=== PATIENT | male | born 1965 | race Caucasian/White ===

== ENCOUNTER 2017-11-16 07:04 | Inpatient (IN) | payer BC ==
[~2017-11-16 07:04] MED LIST: Acetaminophen 325 MG Tab PO SCH; Bisacodyl 5 MG Tab PO PRN; Cyclobenzaprine 10 MG Tab PO PRN; Lactated Ringers 1,000 ML IV SCH; Lidocaine 1%/Sod Bicarbonate in NS 8.4% 1 ML Syringe IDERM PRN; Magnesium Hydroxide 400 MG/5 ML Susp 30 ML Cup PO PRN; Midazolam 1 MG/ML 2 ML SDV ONE; Morphine 2 MG/ML Syringe IVPUSH PRN; Morphine PF 10 MG/10 ML SDV ONE; Naloxone 0.4 MG/ML SDV IVPUSH PRN; Pregabalin 25 MG Cap PO SCH; Propofol 200 MG/20 ML SDV ONE; Sennosides 8.6 MG Tab PO PRN; Sodium Chloride 0.9% 10 ML Syringe FLUSH PRN; fentaNYL 100 MCG/2 ML SDV ONE; oxyCODONE ER 10 MG TAB.ER PO SCH
[2017-11-16] MEDS ORDERED: ceFAZolin 1 GM Vial ONE (07:13)
--- NOTE | 2017-11-16 07:27 | PCM.CONS ---
H&P History of Present Illness - General Date of Service: 11/16/17 Admit Problem/Dx: Admission Diagnosis/Problem Admission Diagnosis/Problem Osteoarthritis of hip Source of Information: Patient, Old Records, Provider, RN, RN Notes Reviewed, Other (Surgical notes ) - History of Present Illness Initial Comments - Free Text/Narative: Omar Parks is a 52 yo male patient of Dr. Buitrago who is post-operative day 0 of right JONAH. Hospital medicine was consulted for post-operative medical care. At this time He is resting comfortably in bed. Pain is controlled. He denies any chest pain, shortness of breath, palpitations, nausea, or vomiting. He carries a history of: Osteoarthritis, HTN, femoral acetabular impingement, and LEO. He was never a smoker. He is a full code. His primary care provider is Ashley More NP. - Related Data Allergies/Adverse Reactions: Allergies Allergy/AdvReac Type Severity Reaction Status Date / Time No Known Allergies Allergy Verified 11/16/17 11:00 Home Medications: Home Meds Aspirin [Ecotrin] 81 mg PO DAILY 11/13/17 [History] Cholecalciferol (Vitamin D3) [Vitamin D3] 5,000 unit PO DAILY 11/13/17 [History] Psyllium [Metamucil] 1 cap PO ASDIRECTED PRN 11/13/17 [History] Fish Oil/[place]-3 Fatty Acids [Fish Oil 1,000 MG] 4 cap PO DAILY 11/16/17 [ History] Past Medical History HEENT History: Reports: Impaired Vision, Other (See Below) Other HEENT History: oral surgery, wears glasses Cardiovascular History: Reports: None Respiratory History: Reports: Sleep Apnea Gastrointestinal History: Reports: None Genitourinary History: Reports: None BUFFET ATTENDANT History: Reports: None Musculoskeletal History: Reports: Arthritis, Other (See Below) Other Musculoskeletal History: femoral acetabular impingment Neurological History: Reports: None Psychiatric History: Reports: None Endocrine/Metabolic History: Reports: None Hematologic History: Reports: None Immunologic History: Reports: None Oncologic (Cancer) History: Reports: None Dermatologic History: Reports: None - Past Surgical History Head Surgeries/Procedures: Reports: None Cardiovascular Surgical History: Reports: None Respiratory Surgical History: Reports: None GI Surgical History: Reports: Colonoscopy Female Surgical History: Reports: None Male Surgical History: Reports: None Endocrine Surgical History: Reports: None Neurological Surgical History: Reports: None Musculoskeletal Surgical History: Reports: Other (See Below) Other Musculoskeletal Surgeries/Procedures:: left hip surgery Oncologic Surgical History: Reports: None Dermatological Surgical History: Reports: None Social & Family History - Tobacco Use Smoking Status *Q: Never Smoker - Caffeine Use Caffeine Use: Reports: Coffee, Soda, Tea - Recreational Drug Use Recreational Drug Use: No Drug Use in Last 12 Months: No H&P Review of Systems - Review of Systems: Review Of Systems: See Below General: Reports: No Symptoms HEENT: Reports: Sore Throat Pulmonary: Reports: No Symptoms. Denies: Shortness of Breath, Wheezing, Cough, Sputum Cardiovascular: Reports: No Symptoms. Denies: Chest Pain, Palpitations Gastrointestinal: Reports: No Symptoms. Denies: Abdominal Pain, Constipation, Diarrhea, Nausea, Vomiting Genitourinary: Reports: No Symptoms Musculoskeletal: Reports: No Symptoms. Denies: Leg Pain Skin: Reports: No Symptoms Psychiatric: Reports: No Symptoms Neurological: Reports: Numbness (legs ) Hematologic/Lymphatic: Reports: No Symptoms Immunologic: Reports: No Symptoms Exam - Exam Exam: See Below - Exam Quality Assessment: Supplemental Oxygen (1L), Urinary Catheter, DVT Prophylaxis General: Alert, Oriented, Cooperative. No: Mild Distress HEENT: Conjunctiva Clear, EACs Clear, EOMI, Hearing Intact, Mucosa Moist & [place] , Nares Patent, Normal Nasal Septum, Posterior Pharynx Clear, PERRLA Neck: Supple, Trachea Midline Lungs: Clear to Auscultation, Normal Respiratory Effort Cardiovascular: Regular Rate, Regular Rhythm GI/Abdominal Exam: Normal Bowel Sounds, Soft, Non-Tender, No Distention, No Abnormal Bruit (Male) Exam: Deferred Rectal (Males) Exam: Deferred Back Exam: Normal Inspection, Full Range of Motion Extremities: No Pedal Edema, Normal Capillary Refill, Leg Pain, Limited Range of Motion, Other (NICOLE bandage in place on right leg. Bandage is dry and intact. Cooling pack in place. ) Peripheral Pulses: 2+: Radial (L), Radial (R), Dorsalis Pedis (L), Dorsalis Pedis (R) Skin: Warm, Dry, Intact Neurological: Cranial Nerves Intact (grossly ) Neuro Extensive - Mental Status: Alert, Oriented x3, Normal Mood/Affect, Normal Cognition, Memory Intact Psychiatric: Alert, Normal Affect, Normal Mood - Patient Data Result Diagrams: 11/16/17 10:42 Consult PN Assessment/Plan POD#: 0 Procedures: Procedures ASSAY OF FOLIC ACID SERUM (05/19/17) ASSAY OF IRON (05/19/17) ASSAY OF PREALBUMIN (10/19/17) ASSAY OF TRANSFERRIN (05/19/17) ASSAY THYROID STIM HORMONE (05/19/17) COMPLETE CBC AUTOMATED (05/19/17) COMPLETE CBC W/AUTO DIFF WBC (10/19/17) COMPREHEN METABOLIC PANEL (10/19/17) DRAIN/INJ JOINT/BURSA W/O US (08/07/17) GLYCOSYLATED HEMOGLOBIN TEST (05/19/17) INJECTION FOR HIP X-RAY (06/25/17) LIPID PANEL (05/19/17) MRI JOINT OF LWR EXTR W/DYE (06/25/17) NEEDLE LOCALIZATION BY XRAY (06/25/17) PROTHROMBIN TIME (10/19/17) ROUTINE VENIPUNCTURE (05/19/17) VITAMIN B-12 (05/19/17) VITAMIN D 25 HYDROXY (05/19/17) X-RAY EXAM CHEST 2 VIEWS (10/19/17) (1) S/P total hip arthroplasty SNOMED Code(s): 891527742367, 335982186478 Code(s): Z96.649 - PRESENCE OF UNSPECIFIED ARTIFICIAL HIP JOINT Priority: High Current Visit: Yes Qualifiers: Laterality: right Qualified Code(s): Z96.641 - Presence of right artificial hip joint (2) Osteoarthritis SNOMED Code(s): 878045629 Code(s): M19.90 - UNSPECIFIED OSTEOARTHRITIS, UNSPECIFIED SITE Priority: High Current Visit: Yes Qualifiers: Osteoarthritis location: hip Osteoarthritis type: primary Laterality: right Qualified Code(s): M16.11 - Unilateral primary osteoarthritis, right hip (3) HTN (hypertension) SNOMED Code(s): 24656693 Code(s): I10 - ESSENTIAL (PRIMARY) HYPERTENSION Priority: Medium Current Visit: No Qualifiers: Hypertension type: unspecified Qualified Code(s): I10 - Essential (primary ) hypertension (4) LEO (obstructive sleep apnea) SNOMED Code(s): 79576385 Code(s): G47.33 - OBSTRUCTIVE SLEEP APNEA (ADULT) (PEDIATRIC) Priority: Low Current Visit: No Problem List Initiated/Reviewed/Updated: Yes Plan: I/P: Acute: S/P right total hip arthroplasty - post-operative day 0 -DVT prophylaxis and pain management per primary care team -PT/OT -IS/RT -Monitor oxygen saturation -Titrate oxygen as needed -Vital signs stable -Monitor labs -Pre-operative Hgb was 13.1 -Pre-operative GFR was >60 Osteoarthritis of right hip -Pain management per primary care team Situational HTN -BP 186/105 pre-operatively; 149/91 post-operatively -Likely worsened by anxiety/pain -Reports PCP is watching BP and he takes it around 3 times a week -Reports pressures normally in 130 systolic -PRN Hydralazine -Recommend closer following of BPs on discharge with close PCP follow-up Chronic: OA HTN LEO - Has home CPAP with Femoral acetabular impingement Plan: CM for discharge planning GI prophylaxis Home medications as indicated Other orders as listed above Routine AM labs He is a full code. His PCP is Ashley More NP. Thank you for allowing us to participate in the care of this patient!! Requesting Provider: Dr. Buitrago Date Consult Requested: 11/16/17 Reason for Consult: Post-operative medical care Patient History Reviewed: Yes Admission H&P Reviewed: Yes Time Spent (in minutes): 40
--- NOTE | 2017-11-16 07:31 | PCM.PREANE ---
Preanesthetic Assessment - Anesthesia/Transfusion/Family Hx Anesthesia History: Prior Anesthesia Without Reaction Type of Anesthesia Reaction: Excessive Nausea/Vomiting (with hip scope 3 years ago) Family History of Anesthesia Reaction: No Transfusion History: No Prior Transfusion(s) - Review of Systems General: No Symptoms Pulmonary: Other (sleep apnea wears CPAP) Cardiovascular: Other (borderline high blood pressure, monitored by primary) Gastrointestinal: No Symptoms Neurological: Other (states he has neuropathy in both feet) - Physical Assessment NPO Status Date: 11/16/17 NPO Status Time: 04:30 (water) Pulse: 62 O2 Sat by Pulse Oximetry: 99 Respiratory Rate: 16 Blood Pressure: 186/105 Height: 1.8 m Weight: 103.102 kg ASA Class: 2 (3) Mental Status: Alert & Oriented x3 Dentition: Reports: Normal Dentition Thyro-Mental Finger Breadths: 3 Mouth Opening Finger Breadths: 3 ROM/Head Extension: Full Lungs: Clear to Auscultation, Normal Respiratory Effort Cardiovascular: Regular Rate, Regular Rhythm - Lab Values: Laboratory Last Values MRSA (PCR) Negative 10/27/17 14:05 - Allergies Allergies/Adverse Reactions: Allergies Allergy/AdvReac Type Severity Reaction Status Date / Time No Known Allergies Allergy Verified 11/13/17 12:52 - Blood Blood Available: No Product(s) Available: None - Anesthesia Plan Pre-Op Medication Ordered: None - Acknowledgements Anesthesia Type Planned: Spinal Pt an Appropriate Candidate for the Planned Anesthesia: Yes Alternatives and Risks of Anesthesia Discussed w Pt/Guardian: Yes Pt/Guardian Understands and Agrees with Anesthesia Plan: Yes PreAnesthesia Questionnaire HEENT History: Reports: Impaired Vision, Other (See Below) Other HEENT History: oral surgery, wears glasses Cardiovascular History: Reports: None Respiratory History: Reports: Sleep Apnea Gastrointestinal History: Reports: None Genitourinary History: Reports: None WASTE MANAGEMENT ENGINEER History: Reports: None Musculoskeletal History: Reports: Arthritis, Other (See Below) Other Musculoskeletal History: femoral acetabular impingment Neurological History: Reports: None Psychiatric History: Reports: None Endocrine/Metabolic History: Reports: None Hematologic History: Reports: None Immunologic History: Reports: None Oncologic (Cancer) History: Reports: None Dermatologic History: Reports: None - Past Surgical History Head Surgeries/Procedures: Reports: None Cardiovascular Surgical History: Reports: None Respiratory Surgical History: Reports: None GI Surgical History: Reports: Colonoscopy Female Surgical History: Reports: None Male Surgical History: Reports: None Endocrine Surgical History: Reports: None Neurological Surgical History: Reports: None Musculoskeletal Surgical History: Reports: Other (See Below) Other Musculoskeletal Surgeries/Procedures:: left hip surgery Oncologic Surgical History: Reports: None Dermatological Surgical History: Reports: None - SUBSTANCE USE Smoking Status *Q: Never Smoker Recreational Drug Use History: No - HOME MEDS Home Medications: Home Meds Aspirin [Ecotrin] 81 mg PO DAILY 11/13/17 [History] Cholecalciferol (Vitamin D3) [Vitamin D3] 5,000 unit PO DAILY 11/13/17 [History] Psyllium [Metamucil] 1 cap PO ASDIRECTED PRN 11/13/17 [History] - CURRENT (IN HOUSE) MEDS Current Meds: Current Medications Acetaminophen (Tylenol) 975 mg PO ONETIME KARISSA Stop: 11/16/17 12:00 Aspirin (Ecotrin) 325 mg PO BID KARISSA Bisacodyl (Dulcolax) 5 mg PO DAILY PRN PRN Reason: Constipation Morphine Sulfate 8 mg/Epinephrine HCl 0.3 mg/Cefuroxime Sodium 750 mg/Ketorolac Tromethamine 30 mg/Sodium Chloride 27.9 ml 0 mg .XX ONETIME ONE Stop: 11/16/17 09:01 Cyclobenzaprine HCl (Flexeril) 10 mg PO TID PRN PRN Reason: Spasms Docusate Sodium (Colace) 100 mg PO BID KARISSA Famotidine (Pepcid) 20 mg PO Q12H [facility] Lactated Ringer's (Ringers, Lactated) 1,000 mls @ 125 mls/hr IV ASDIRECTED KARISSA Cefazolin Sodium/Dextrose 2 gm (/ Premix) 50 mls @ 100 mls/hr IV Q8H KARISSA Stop: 11/16/17 22:59 Ketorolac Tromethamine (Toradol) 15 mg IVPUSH Q6H PRN PRN Reason: Pain Lidocaine/Sodium Bicarbonate (Buffered Lidocaine 1% In Ns 8.4%) 0.25 ml IDERM ONETIME PRN PRN Reason: Prior to IV Start Magnesium Hydroxide (Milk Of Magnesia) 30 ml PO BID PRN PRN Reason: Constipation Morphine Sulfate (Morphine) 2 mg IVPUSH Q2H PRN PRN Reason: Breakthrough Pain Naloxone HCl (Narcan) 0.1 mg IVPUSH Q5M PRN PRN Reason: Oversedation Ondansetron HCl (Zofran) 4 mg IVPUSH Q6H PRN PRN Reason: Nausea/Vomiting Oxycodone HCl (Oxycontin) 10 mg PO ONETIME [facility] Stop: 11/16/17 12:00 Oxycodone/Acetaminophen (Percocet 325-5 Mg) 1 - 2 tab PO Q4H PRN PRN Reason: Pain Pregabalin (Lyrica) 50 mg PO ONETIME [facility] Stop: 11/16/17 12:00 Senna (Senna) 8.6 mg PO BID PRN PRN Reason: Constipation Sodium Chloride (Saline Flush) 10 ml FLUSH ASDIRECTED PRN PRN Reason: Keep Vein Open Discontinued Medications Bupivacaine HCl (Marcaine 0.25%) Confirm Administered Dose 30 ml .ROUTE .STK- MED ONE Stop: 11/16/17 07:14 Cefazolin Sodium (Ancef) Confirm Administered Dose 2 gm .ROUTE .STK-MED ONE Stop: 11/16/17 06:59 Cefazolin Sodium (Ancef) Confirm Administered Dose 2 gm .ROUTE .STK-MED ONE Stop: 11/16/17 07:14 Fentanyl (Sublimaze) Confirm Administered Dose 100 mcg .ROUTE .STK-MED ONE Stop: 11/16/17 07:00 Iodine (Iodine 2% Mild Tincture) Confirm Administered Dose 30 ml .ROUTE .STK- MED ONE Stop: 11/16/17 07:14 Midazolam HCl (Versed 1 Mg/Ml) Confirm Administered Dose 2 mg .ROUTE .STK-MED ONE Stop: 11/16/17 07:00 Morphine Sulfate (Duramorph Pf) Confirm Administered Dose 10 mg .ROUTE .STK-MED ONE Stop: 11/16/17 07:00 Propofol (Diprivan 20 Ml) Confirm Administered Dose 600 mg .ROUTE .STK-MED ONE Stop: 11/16/17 07:00 Tranexamic Acid (Cyklokapron) Confirm Administered Dose 1,000 mg .ROUTE .STK- MED ONE Stop: 11/16/17 07:14 Vancomycin HCl (Vancomycin) Confirm Administered Dose 1 gm .ROUTE .STK-MED ONE Stop: 11/16/17 07:14
[2017-11-16] MEDS ORDERED: Bupivacaine 0.75% 30 ML SDV ONE (08:39)
[2017-11-16] MEDS ORDERED: Ondansetron 4 MG/2 ML SDV ONE (08:39)
[2017-11-16] MEDS: ceFAZolin 1 GM Vial ONE ×2 (08:51→09:23)
[2017-11-16] MEDS: Iodine/Sodium Iodide 2% Tincture 30 ML Bottle ONE ×2 (08:52→09:21)
[2017-11-16] MEDS: Morphine 8 MG, EPINEPHrine 0.3 MG, Cefuroxime 750 MG, Ketorolac 30 MG, Sodium Chloride ... ONE ×15 (08:53→15:05)
[2017-11-16] MEDS: Bupivacaine 0.25% 30 ML SDV ONE ×2 (08:53→09:29)
[2017-11-16] MEDS: Vancomycin 1 GM SDV ONE ×2 (08:54→09:30)
[2017-11-16] MEDS ORDERED: Propofol 200 MG/20 ML SDV ONE (08:59)
[2017-11-16] MEDS ORDERED: Lactated Ringers 1,000 ML ONE ×3 (09:47)
--- NOTE | 2017-11-16 10:01 | PCM.POSTAN ---
POST ANESTHESIA ASSESSMENT - MENTAL STATUS Mental Status: Alert, Oriented - VITAL SIGNS Pulse Rate: 63 SaO2: 98 Resp Rate: 13 Blood Pressure: 126/82 Temperature: 36.2 C - RESPIRATORY Respiratory Status: Respiratory Rate WNL, Airway Patent, O2 Saturation Stable, Supplemental Oxygen - CARDIOVASCULAR CV Status: Pulse Rate WNL, Blood Pressure Stable - GASTROINTESTINAL GI Status: No Symptoms - PAIN Pain Score: 0
[2017-11-16] MEDS ORDERED: fentaNYL 100 MCG/2 ML SDV IVPUSH PRN (10:02)
[2017-11-16] MEDS ORDERED: diphenhydrAMINE 50 MG/ML SDV IVPUSH PRN (10:02)
[2017-11-16] MEDS ORDERED: HYDROmorphone 0.5 MG/0.5 ML Syringe IVPUSH PRN (10:02)
--- NOTE | 2017-11-16 10:44 | CR ---
Pelvis and right hip: AP view of the pelvis was obtained as well as lateral view of the right hip. Comparison: Prior MRI study of the right hip dated 06/25/17. Right hip prosthesis is seen. Components are aligned. Underlying bony structures are intact. Impression: 1. Satisfactory radiographic appearance of recently placed right hip prosthesis. Diagnostic code #2
[2017-11-16] MEDS ORDERED: Psyllium Husk Powder Sugar Free 3.4 GM Packet PO PRN (11:46)
[2017-11-16] MEDS: Ondansetron 4 MG/2 ML SDV IVPUSH PRN ×2 (13:51→20:30)
[2017-11-16] MEDS ORDERED: Scopolamine 1.5 MG Transdermal Patch TRDERM ONE (14:13)
[2017-11-16] MEDS: ceFAZolin 2 GM in Premix Bag 1 BAG IV SCH ×2 (15:32→23:00)
[2017-11-16] MEDS: Ketorolac 15 MG/ML SDV IVPUSH PRN (17:42)
[2017-11-16] MEDS: Acetaminophen/oxyCODONE 325-5 MG Tab PO PRN (20:27)
[2017-11-16] MEDS: Docusate Sodium 100 MG Cap PO SCH (20:29)
[2017-11-16] MEDS: Famotidine 20 MG Tab PO SCH (20:29)
[2017-11-17] MEDS: Acetaminophen/oxyCODONE 325-5 MG Tab PO PRN ×2 (03:07→08:32)
--- NOTE | 2017-11-17 06:35 | PCM.CONSN ---
- General Info Date of Service: 11/17/17 Admission Dx/Problem (Free Text): Admission Diagnosis/Problem Admission Diagnosis/Problem Osteoarthritis of hip Subjective Update: In to see Omar. He is quite tired but has no complaints. He is sitting up in the chair. No nursing complaints. Functional Status: Reports: Pain Controlled, Tolerating Diet, Ambulating, Urinating, Incentive Spirometry. Denies: New Symptoms - Review of Systems General: Reports: No Symptoms. Denies: Fever, Malaise HEENT: Reports: No Symptoms. Denies: Sore Throat Pulmonary: Reports: No Symptoms. Denies: Shortness of Breath, Cough, Wheezing Cardiovascular: Reports: No Symptoms. Denies: Chest Pain, Palpitations, Lightheadedness Gastrointestinal: Reports: No Symptoms. Denies: Abdominal Pain, Constipation, Diarrhea, Nausea, Vomiting Genitourinary: Reports: No Symptoms. Denies: Dysuria, Burning Musculoskeletal: Reports: Leg Pain Skin: Reports: No Symptoms Neurological: Reports: No Symptoms. Denies: Confusion Psychiatric: Reports: No Symptoms - Patient Data Vitals - Most Recent: Last Vital Signs Temp 97.9 F 11/17/17 03:17 Pulse 47 L 11/17/17 03:17 Resp 12 11/17/17 06:00 BP 115/72 11/17/17 03:17 Pulse Ox 97 11/17/17 06:00 Weight - Most Recent: 233 lb 8 oz I&O - Last 24 Hours: Intake & Output 11/16/17 11/16/17 11/17/17 14:59 22:59 06:59 Intake Total 561 629 1801 Output Total 800 1150 1325 Balance -430 -750 1345 Lab Results Last 24 Hours: Laboratory Results - last 24 hr 11/16/17 11/16/17 11/17/17 Range/Units 07:25 10:42 05:40 WBC 7.66 (4.23-9.07) K/mm3 RBC 3.52 L (4.63-6.08) M/mm3 Hgb 12.5 L 10.6 L (13.7-17.5) gm/L Hct 36.7 L 30.9 L (40.1-51.0) % MCV 87.8 (79.0-92.2) fl MCH 30.1 (25.7-32.2) pg MCHC 34.3 (32.2-35.5) g/dl RDW Std Deviation 41.2 (35.1-43.9) fL Plt Count 156 L (163-337) K/mm3 MPV 9.3 L (9.4-12.3) fl Blood Type O POSITIVE Gel Antibody Screen Negative Med Orders - Current: Current Medications Aspirin (Ecotrin) 325 mg PO BID [facility] Bisacodyl (Dulcolax) 5 mg PO DAILY PRN PRN Reason: Constipation Cholecalciferol (Vitamin D3) 5,000 unit PO DAILY [facility] Cyclobenzaprine HCl (Flexeril) 10 mg PO TID PRN PRN Reason: Spasms Last Admin: 11/16/17 20:29 Dose: 10 mg Docusate Sodium (Colace) 100 mg PO BID [facility] Last Admin: 11/16/17 20:29 Dose: 100 mg Famotidine (Pepcid) 20 mg PO Q12H [facility] Last Admin: 11/16/17 20:29 Dose: 20 mg Cefazolin Sodium/Dextrose 2 gm (/ Premix) 50 mls @ 100 mls/hr IV Q8H [facility] Stop: 11/17/17 07:59 Last Admin: 11/16/17 23:00 Dose: 100 mls/hr Ketorolac Tromethamine (Toradol) 15 mg IVPUSH Q6H PRN PRN Reason: Pain Last Admin: 11/16/17 17:42 Dose: 15 mg Magnesium Hydroxide (Milk Of Magnesia) 30 ml PO BID PRN PRN Reason: Constipation Miscellaneous Information (Remove Patch) 1 ea TRDERM ONETIME ONE Stop: 11/19/17 14:16 Morphine Sulfate (Morphine) 2 mg IVPUSH Q2H PRN PRN Reason: Breakthrough Pain Naloxone HCl (Narcan) 0.1 mg IVPUSH Q5M PRN PRN Reason: Oversedation Ondansetron HCl (Zofran) 4 mg IVPUSH Q6H PRN PRN Reason: Nausea/Vomiting Last Admin: 11/16/17 20:30 Dose: 4 mg Oxycodone/Acetaminophen (Percocet 325-5 Mg) 1 - 2 tab PO Q4H PRN PRN Reason: Pain Last Admin: 11/17/17 03:07 Dose: 2 tab Psyllium Husk (Metamucil Sugar Free) 1 packet PO DAILY PRN PRN Reason: CONSTIPATION Senna (Senna) 8.6 mg PO BID PRN PRN Reason: Constipation Sodium Chloride (Saline Flush) 10 ml FLUSH ASDIRECTED PRN PRN Reason: Keep Vein Open Discontinued Medications Acetaminophen (Tylenol) 975 mg PO ONETIME [facility] Stop: 11/16/17 12:00 Last Admin: 11/16/17 07:33 Dose: 975 mg Bupivacaine HCl (Marcaine 0.25%) Confirm Administered Dose 30 ml .ROUTE .STK- MED ONE Stop: 11/16/17 07:14 Last Admin: 11/16/17 09:29 Dose: 30 ml Bupivacaine HCl (Sensorcaine-Mpf 0.75%) Confirm Administered Dose 30 ml .ROUTE .STK-MED ONE Stop: 11/16/17 08:40 Cefazolin Sodium (Ancef) Confirm Administered Dose 2 gm .ROUTE .STK-MED ONE Stop: 11/16/17 06:59 Last Admin: 11/16/17 09:23 Dose: 2 gm Cefazolin Sodium (Ancef) Confirm Administered Dose 2 gm .ROUTE .STK-MED ONE Stop: 11/16/17 07:14 Morphine Sulfate 8 mg/Epinephrine HCl 0.3 mg/Cefuroxime Sodium 750 mg/Ketorolac Tromethamine 30 mg/Sodium Chloride 27.9 ml 0 mg .XX ONETIME ONE Stop: 11/16/17 09:01 Last Admin: 11/16/17 15:05 Dose: Not Given Diphenhydramine HCl (Benadryl) 25 mg IVPUSH Q6H PRN PRN Reason: itching Stop: 11/16/17 14:00 Fentanyl (Sublimaze) Confirm Administered Dose 100 mcg .ROUTE .STK-MED ONE Stop: 11/16/17 07:00 Fentanyl (Sublimaze) 50 mcg IVPUSH Q5M PRN PRN Reason: pain Stop: 11/16/17 14:00 Hydromorphone HCl (Dilaudid) 0.5 mg IVPUSH ONETIME PRN PRN Reason: Pain (severe 7-10) Stop: 11/16/17 12:00 Lactated Ringer's (Ringers, Lactated) 1,000 mls @ 125 mls/hr IV ASDIRECTED [facility] Last Admin: 09/10/18 07:25 Dose: 125 mls/hr Lidocaine HCl (Xylocaine-Mpf 1%) Confirm Administered Dose 5 mls @ as directed .ROUTE .STK-MED ONE Stop: 11/16/17 08:40 Lactated Ringer's (Ringers, Lactated) Confirm Administered Dose 1,000 mls @ as directed .ROUTE .STK-MED ONE Stop: 11/16/17 09:48 Lactated Ringer's (Ringers, Lactated) Confirm Administered Dose 1,000 mls @ as directed .ROUTE .STK-MED ONE Stop: 11/16/17 09:48 Lactated Ringer's (Ringers, Lactated) Confirm Administered Dose 1,000 mls @ as directed .ROUTE .STK-MED ONE Stop: 11/16/17 09:48 Iodine (Iodine 2% Mild Tincture) Confirm Administered Dose 30 ml .ROUTE .STK- MED ONE Stop: 11/16/17 07:14 Last Admin: 11/16/17 09:21 Dose: 18 ml Lidocaine/Sodium Bicarbonate (Buffered Lidocaine 1% In Ns 8.4%) 0.25 ml IDERM ONETIME PRN PRN Reason: Prior to IV Start Last Admin: 11/16/17 07:25 Dose: 0.25 ml Midazolam HCl (Versed 1 Mg/Ml) Confirm Administered Dose 2 mg .ROUTE .STK-MED ONE Stop: 11/16/17 07:00 Morphine Sulfate (Duramorph Pf) Confirm Administered Dose 10 mg .ROUTE .STK-MED ONE Stop: 11/16/17 07:00 Ondansetron HCl (Zofran) Confirm Administered Dose 4 mg .ROUTE .STK-MED ONE Stop: 11/16/17 08:40 Oxycodone HCl (Oxycontin) 10 mg PO ONETIME [facility] Stop: 11/16/17 12:00 Last Admin: 11/16/17 07:33 Dose: 10 mg Pregabalin (Lyrica) 50 mg PO ONETIME [facility] Stop: 11/16/17 12:00 Last Admin: 11/16/17 07:33 Dose: 50 mg Propofol (Diprivan 20 Ml) Confirm Administered Dose 600 mg .ROUTE .STK-MED ONE Stop: 11/16/17 07:00 Propofol (Diprivan 20 Ml) Confirm Administered Dose 200 mg .ROUTE .STK-MED ONE Stop: 11/16/17 09:00 Scopolamine (Transderm-Scop) 1.5 mg TRDERM Q72H ONE Stop: 11/16/17 14:14 Last Admin: 11/16/17 14:18 Dose: 1.5 mg Tranexamic Acid (Cyklokapron) Confirm Administered Dose 1,000 mg .ROUTE .STK- MED ONE Stop: 11/16/17 07:14 Last Admin: 11/16/17 09:30 Dose: 1,000 mg Vancomycin HCl (Vancomycin) Confirm Administered Dose 1 gm .ROUTE .STK-MED ONE Stop: 11/16/17 07:14 Last Admin: 11/16/17 09:30 Dose: 1 gm - Exam Quality Assessment: DVT Prophylaxis General: Alert, Oriented, Cooperative, No Acute Distress HEENT: Pupils Equal, Pupils Reactive, EOMI, Mucous Membr. Moist/[place] Neck: Supple, Trachea Midline, No JVD Lungs: Clear to Auscultation, Normal Respiratory Effort Cardiovascular: Regular Rate, Regular Rhythm GI/Abdominal Exam: Normal Bowel Sounds, Soft, Non-Tender, No Distention (Male) Exam: Deferred Back Exam: Normal Inspection, Full Range of Motion Extremities: No Pedal Edema, Normal Capillary Refill, Leg Pain, Limited Range of Motion, Other (NICOLE bandage in place on right leg. Cooling pack in place. ) Peripheral Pulses: 2+: Radial (L), Radial (R), Dorsalis Pedis (L), Dorsalis Pedis (R) Skin: Warm, Dry, Intact Wound/Incisions: Dressing Dry and Intact, No Drainage Neurological: No New Focal Deficit Psy/Mental Status: Alert, Normal Affect, Normal Mood Consult PN Assessment/Plan POD#: 1 Procedures: Procedures ASSAY OF FOLIC ACID SERUM (05/19/17) ASSAY OF IRON (05/19/17) ASSAY OF PREALBUMIN (10/19/17) ASSAY OF TRANSFERRIN (05/19/17) ASSAY THYROID STIM HORMONE (05/19/17) COMPLETE CBC AUTOMATED (05/19/17) COMPLETE CBC W/AUTO DIFF WBC (10/19/17) COMPREHEN METABOLIC PANEL (10/19/17) DRAIN/INJ JOINT/BURSA W/O US (08/07/17) GLYCOSYLATED HEMOGLOBIN TEST (05/19/17) INJECTION FOR HIP X-RAY (06/25/17) LIPID PANEL (05/19/17) MRI JOINT OF LWR EXTR W/DYE (06/25/17) NEEDLE LOCALIZATION BY XRAY (06/25/17) PROTHROMBIN TIME (10/19/17) ROUTINE VENIPUNCTURE (05/19/17) VITAMIN B-12 (05/19/17) VITAMIN D 25 HYDROXY (05/19/17) X-RAY EXAM CHEST 2 VIEWS (10/19/17) (1) S/P total hip arthroplasty SNOMED Code(s): 426636369866, 446662161436 Code(s): Z96.649 - PRESENCE OF UNSPECIFIED ARTIFICIAL HIP JOINT Priority: High Current Visit: Yes Qualifiers: Laterality: right Qualified Code(s): Z96.641 - Presence of right artificial hip joint (2) Osteoarthritis SNOMED Code(s): 438617412 Code(s): M19.90 - UNSPECIFIED OSTEOARTHRITIS, UNSPECIFIED SITE Priority: High Current Visit: Yes Qualifiers: Osteoarthritis location: hip Osteoarthritis type: primary Laterality: right Qualified Code(s): M16.11 - Unilateral primary osteoarthritis, right hip (3) HTN (hypertension) SNOMED Code(s): 97932730 Code(s): I10 - ESSENTIAL (PRIMARY) HYPERTENSION Priority: Medium Current Visit: No Qualifiers: Hypertension type: unspecified Qualified Code(s): I10 - Essential (primary ) hypertension (4) LEO (obstructive sleep apnea) SNOMED Code(s): 18826337 Code(s): G47.33 - OBSTRUCTIVE SLEEP APNEA (ADULT) (PEDIATRIC) Priority: Low Current Visit: No Problem List Initiated/Reviewed/Updated: Yes My Orders Last 24 Hours: My Active Orders 11/16/17 11:00 CPAP Noctural Home [RT BiPAP/CPAP] [RC] ASDIRECTED 11/19/17 14:15 Remove Patch 1 ea TRDERM ONETIME ONE Plan: I/P: Acute: S/P right total hip arthroplasty - post-operative day 1 -DVT prophylaxis and pain management per primary care team -PT/OT -IS/RT -Monitor oxygen saturation -Titrate oxygen as needed -Vital signs stable -Monitor labs -Pre-operative Hgb was 13.1-->12.5; Now 10.6 -Pre-operative GFR was >60, now >60 Osteoarthritis of right hip -Pain management per primary care team Chronic: OA HTN LEO - Has home CPAP with Femoral acetabular impingement Plan: CM for discharge planning GI prophylaxis Home medications as indicated Other orders as listed above Routine AM labs He is a full code. His PCP is Ashley More NP. From a hospitalist standpoint Omar is doing well. He has been working with therapies. He has urinated and been weaned off oxygen. His vital signs and labs remain stable. No patient or nursing concerns. He is cleared for discharge pending primary care team and PT/OT approval. Thank you for allowing us to participate in the care of this patient!!
[2017-11-17] MEDS: Ketorolac 15 MG/ML SDV IVPUSH PRN (06:39)
[2017-11-17] MEDS: ceFAZolin 2 GM in Premix Bag 1 BAG IV SCH (06:40)
--- NOTE | 2017-11-17 07:53 | PCM.SURGPN ---
- General Info Date of Service: 11/17/17 POD#: 1 Functional Status: Reports: Pain Controlled, Tolerating Diet, Ambulating, Urinating, Incentive Spirometry, Other (The pt reported nausea yesterday and this is improving.) - Patient Data Vitals - Most Recent: Last Vital Signs Temp 97.9 F 11/17/17 03:17 Pulse 47 L 11/17/17 03:17 Resp 14 11/17/17 07:00 BP 115/72 11/17/17 03:17 Pulse Ox 96 11/17/17 07:00 Weight - Most Recent: 233 lb 8 oz I&O - Last 24 Hours: Intake & Output 11/16/17 11/17/17 11/17/17 22:59 06:59 14:59 Intake Total 400 2670 Output Total 1150 1325 Balance -750 1345 Lab Results Last 24 Hrs: Laboratory Results - last 24 hr 11/16/17 11/16/17 11/17/17 Range/Units 07:25 10:42 05:40 WBC 7.66 (4.23-9.07) K/mm3 RBC 3.52 L (4.63-6.08) M/mm3 Hgb 12.5 L 10.6 L (13.7-17.5) gm/L Hct 36.7 L 30.9 L (40.1-51.0) % MCV 87.8 (79.0-92.2) fl MCH 30.1 (25.7-32.2) pg MCHC 34.3 (32.2-35.5) g/dl RDW Std Deviation 41.2 (35.1-43.9) fL Plt Count 156 L (163-337) K/mm3 MPV 9.3 L (9.4-12.3) fl Blood Type O POSITIVE Gel Antibody Screen Negative Med Orders - Current: Current Medications Aspirin (Ecotrin) 325 mg PO BID [facility] Bisacodyl (Dulcolax) 5 mg PO DAILY PRN PRN Reason: Constipation Cholecalciferol (Vitamin D3) 5,000 unit PO DAILY [facility] Cyclobenzaprine HCl (Flexeril) 10 mg PO TID PRN PRN Reason: Spasms Last Admin: 11/16/17 20:29 Dose: 10 mg Docusate Sodium (Colace) 100 mg PO BID [facility] Last Admin: 11/16/17 20:29 Dose: 100 mg Famotidine (Pepcid) 20 mg PO Q12H [facility] Last Admin: 11/16/17 20:29 Dose: 20 mg Cefazolin Sodium/Dextrose 2 gm (/ Premix) 50 mls @ 100 mls/hr IV Q8H [facility] Stop: 11/17/17 07:59 Last Admin: 11/17/17 06:40 Dose: 100 mls/hr Ketorolac Tromethamine (Toradol) 15 mg IVPUSH Q6H PRN PRN Reason: Pain Last Admin: 11/17/17 06:39 Dose: 15 mg Magnesium Hydroxide (Milk Of Magnesia) 30 ml PO BID PRN PRN Reason: Constipation Miscellaneous Information (Remove Patch) 1 ea TRDERM ONETIME ONE Stop: 11/19/17 14:16 Morphine Sulfate (Morphine) 2 mg IVPUSH Q2H PRN PRN Reason: Breakthrough Pain Naloxone HCl (Narcan) 0.1 mg IVPUSH Q5M PRN PRN Reason: Oversedation Ondansetron HCl (Zofran) 4 mg IVPUSH Q6H PRN PRN Reason: Nausea/Vomiting Last Admin: 11/16/17 20:30 Dose: 4 mg Oxycodone/Acetaminophen (Percocet 325-5 Mg) 1 - 2 tab PO Q4H PRN PRN Reason: Pain Last Admin: 11/17/17 03:07 Dose: 2 tab Psyllium Husk (Metamucil Sugar Free) 1 packet PO DAILY PRN PRN Reason: CONSTIPATION Senna (Senna) 8.6 mg PO BID PRN PRN Reason: Constipation Sodium Chloride (Saline Flush) 10 ml FLUSH ASDIRECTED PRN PRN Reason: Keep Vein Open Discontinued Medications Acetaminophen (Tylenol) 975 mg PO ONETIME [facility] Stop: 11/16/17 12:00 Last Admin: 11/16/17 07:33 Dose: 975 mg Bupivacaine HCl (Marcaine 0.25%) Confirm Administered Dose 30 ml .ROUTE .STK- MED ONE Stop: 11/16/17 07:14 Last Admin: 11/16/17 09:29 Dose: 30 ml Bupivacaine HCl (Sensorcaine-Mpf 0.75%) Confirm Administered Dose 30 ml .ROUTE .STK-MED ONE Stop: 11/16/17 08:40 Cefazolin Sodium (Ancef) Confirm Administered Dose 2 gm .ROUTE .STK-MED ONE Stop: 11/16/17 06:59 Last Admin: 11/16/17 09:23 Dose: 2 gm Cefazolin Sodium (Ancef) Confirm Administered Dose 2 gm .ROUTE .STK-MED ONE Stop: 11/16/17 07:14 Morphine Sulfate 8 mg/Epinephrine HCl 0.3 mg/Cefuroxime Sodium 750 mg/Ketorolac Tromethamine 30 mg/Sodium Chloride 27.9 ml 0 mg .XX ONETIME ONE Stop: 11/16/17 09:01 Last Admin: 11/16/17 15:05 Dose: Not Given Diphenhydramine HCl (Benadryl) 25 mg IVPUSH Q6H PRN PRN Reason: itching Stop: 11/16/17 14:00 Fentanyl (Sublimaze) Confirm Administered Dose 100 mcg .ROUTE .STK-MED ONE Stop: 11/16/17 07:00 Fentanyl (Sublimaze) 50 mcg IVPUSH Q5M PRN PRN Reason: pain Stop: 11/16/17 14:00 Hydromorphone HCl (Dilaudid) 0.5 mg IVPUSH ONETIME PRN PRN Reason: Pain (severe 7-10) Stop: 11/16/17 12:00 Lactated Ringer's (Ringers, Lactated) 1,000 mls @ 125 mls/hr IV ASDIRECTED [facility] Last Admin: 11/16/17 07:25 Dose: 125 mls/hr Lidocaine HCl (Xylocaine-Mpf 1%) Confirm Administered Dose 5 mls @ as directed .ROUTE .ST-MED ONE Stop: 11/16/17 08:40 Lactated Ringer's (Ringers, Lactated) Confirm Administered Dose 1,000 mls @ as directed .ROUTE .STK-MED ONE Stop: 11/16/17 09:48 Lactated Ringer's (Ringers, Lactated) Confirm Administered Dose 1,000 mls @ as directed .ROUTE .STK-MED ONE Stop: 11/16/17 09:48 Lactated Ringer's (Ringers, Lactated) Confirm Administered Dose 1,000 mls @ as directed .ROUTE .STK-MED ONE Stop: 11/16/17 09:48 Iodine (Iodine 2% Mild Tincture) Confirm Administered Dose 30 ml .ROUTE .STK- MED ONE Stop: 11/16/17 07:14 Last Admin: 11/16/17 09:21 Dose: 18 ml Lidocaine/Sodium Bicarbonate (Buffered Lidocaine 1% In Ns 8.4%) 0.25 ml IDERM ONETIME PRN PRN Reason: Prior to IV Start Last Admin: 11/16/17 07:25 Dose: 0.25 ml Midazolam HCl (Versed 1 Mg/Ml) Confirm Administered Dose 2 mg .ROUTE .STK-MED ONE Stop: 11/16/17 07:00 Morphine Sulfate (Duramorph Pf) Confirm Administered Dose 10 mg .ROUTE .STK-MED ONE Stop: 11/16/17 07:00 Ondansetron HCl (Zofran) Confirm Administered Dose 4 mg .ROUTE .STK-MED ONE Stop: 11/16/17 08:40 Oxycodone HCl (Oxycontin) 10 mg PO ONETIME [facility] Stop: 11/16/17 12:00 Last Admin: 11/16/17 07:33 Dose: 10 mg Pregabalin (Lyrica) 50 mg PO ONETIME [facility] Stop: 11/16/17 12:00 Last Admin: 11/16/17 07:33 Dose: 50 mg Propofol (Diprivan 20 Ml) Confirm Administered Dose 600 mg .ROUTE .STK-MED ONE Stop: 11/16/17 07:00 Propofol (Diprivan 20 Ml) Confirm Administered Dose 200 mg .ROUTE .STK-MED ONE Stop: 11/16/17 09:00 Scopolamine (Transderm-Scop) 1.5 mg TRDERM Q72H ONE Stop: 11/16/17 14:14 Last Admin: 11/16/17 14:18 Dose: 1.5 mg Tranexamic Acid (Cyklokapron) Confirm Administered Dose 1,000 mg .ROUTE .STK- MED ONE Stop: 11/16/17 07:14 Last Admin: 11/16/17 09:30 Dose: 1,000 mg Vancomycin HCl (Vancomycin) Confirm Administered Dose 1 gm .ROUTE .STK-MED ONE Stop: 11/16/17 07:14 Last Admin: 11/16/17 09:30 Dose: 1 gm - Exam Wound/Incisions: Dressing Dry and Intact General: Alert, Cooperative, No Acute Distress Lungs: Normal Respiratory Effort Extremities: Other (NVS intact for RLE. Gayatri's negative. Right thigh soft.) - Problem List Review Problem List Initiated/Reviewed/Updated: Yes - My Orders Last 24 Hours: Active Orders 24 hr Category Date Time Status CPAP Noctural Home [RT BiPAP/CPAP] [RC] ASDIRECTED Care 11/16/17 11:00 Active Cooling Warming Measures [RC] ASDIRECTED Care 11/16/17 10:01 Inactive Notify Provider [RC] ASDIRECTED Care 11/16/17 10:01 Active Oxygen Therapy [RC] ASDIRECTED Care 11/16/17 10:01 Active Ready for Discharge [RC] PER UNIT ROUTINE Care 11/17/17 07:51 Ordered Regular Diet [DIET] Diet 11/16/17 Lunch Active COMPREHENSIVE METABOLIC PN,CMP [CHEM] AM Lab 11/17/17 05:40 Received Aspirin [Ecotrin] Med 11/17/17 09:00 Active 325 mg PO BID Cholecalciferol (Vitamin D3) [Vitamin D3] Med 11/17/17 09:00 Active 5,000 unit PO DAILY Docusate Sodium [Colace] Med 11/16/17 21:00 Active 100 mg PO BID Famotidine [Pepcid] Med 11/16/17 21:00 Active 20 mg PO Q12H Psyllium Husk/Aspartame [Metamucil Sugar Free] Med 11/16/17 11:46 Active 1 packet PO DAILY PRN Remove Patch Med 11/19/17 14:15 Once 1 ea TRDERM ONETIME ONE ceFAZolin [Ancef] 2 gm Med 11/16/17 15:30 Active Premix Bag 1 bag IV Q8H Medication Orders Aspirin (Ecotrin) 325 mg PO BID [facility] Bisacodyl (Dulcolax) 5 mg PO DAILY PRN PRN Reason: Constipation Cholecalciferol (Vitamin D3) 5,000 unit PO DAILY [facility] Cyclobenzaprine HCl (Flexeril) 10 mg PO TID PRN PRN Reason: Spasms Last Admin: 11/16/17 20:29 Dose: 10 mg Docusate Sodium (Colace) 100 mg PO BID [facility] Last Admin: 11/16/17 20:29 Dose: 100 mg Famotidine (Pepcid) 20 mg PO Q12H [facility] Last Admin: 11/16/17 20:29 Dose: 20 mg Cefazolin Sodium/Dextrose 2 gm (/ Premix) 50 mls @ 100 mls/hr IV Q8H [facility] Stop: 11/17/17 07:59 Last Admin: 11/17/17 06:40 Dose: 100 mls/hr Infusion: 11/16/17 23:30 Dose: 100 mls/hr Admin: 11/16/17 23:00 Dose: 100 mls/hr Infusion: 11/16/17 16:02 Dose: 100 mls/hr Admin: 11/16/17 15:32 Dose: 100 mls/hr Ketorolac Tromethamine (Toradol) 15 mg IVPUSH Q6H PRN PRN Reason: Pain Last Admin: 11/17/17 06:39 Dose: 15 mg Admin: 11/16/17 17:42 Dose: 15 mg Magnesium Hydroxide (Milk Of Magnesia) 30 ml PO BID PRN PRN Reason: Constipation Miscellaneous Information (Remove Patch) 1 ea TRDERM ONETIME ONE Stop: 11/19/17 14:16 Morphine Sulfate (Morphine) 2 mg IVPUSH Q2H PRN PRN Reason: Breakthrough Pain Naloxone HCl (Narcan) 0.1 mg IVPUSH Q5M PRN PRN Reason: Oversedation Ondansetron HCl (Zofran) 4 mg IVPUSH Q6H PRN PRN Reason: Nausea/Vomiting Last Admin: 11/16/17 20:30 Dose: 4 mg Admin: 11/16/17 13:51 Dose: 4 mg Oxycodone/Acetaminophen (Percocet 325-5 Mg) 1 - 2 tab PO Q4H PRN PRN Reason: Pain Last Admin: 11/17/17 03:07 Dose: 2 tab Admin: 11/16/17 20:27 Dose: 2 tab Psyllium Husk (Metamucil Sugar Free) 1 packet PO DAILY PRN PRN Reason: CONSTIPATION Senna (Senna) 8.6 mg PO BID PRN PRN Reason: Constipation Sodium Chloride (Saline Flush) 10 ml FLUSH ASDIRECTED PRN PRN Reason: Keep Vein Open - Assessment Assessment (Free Text/Narrative):: POD#1 - right JONAH - Plan Plan (Free Text/Narrative):: 1. Hgb 10.6. 2. ASA 325mg PO BID, frequent mobility, TEDs. 3. JONAH precautions. 4. Discharge to home today. The pt's case was discussed with Dr. Buitrago.
--- NOTE | 2017-11-17 07:58 | PCM.DCSUM1 ---
Discharge Summary - Hospital Course Brief History: Omar is a 52 yo male who underwent right JONAH with Dr. Buitrago on . The procedure was completed under spinal anesthesia. The pt tolerated the procedure well and was admitted to the Medical-Surgical Unit. Medical management was provided by the Hospitalist service. The pt's Hospital course was uneventful. The pt's Hgb on POD#1 was 10.6. On POD#1, 325mg ASA BID was initiated for VTE prophylaxis. SCDs and TEDs were also ordered. A Mepilex dressing was placed at the incision site at the time of surgery and remained clean and dry. The pt participated in P.T. and O.T. and progressed well. He followed the JONAH precautions. The pt was allowed to WBAT. On POD#1, the pt was deemed appropriate to discharge to home. - Discharge Data Discharge Date: 11/17/17 Discharge Disposition: Home, Self-Care 01 Condition: Good - Patient Summary/Data Consults: Consultations 11/16/17 06:24 Consult to Physician [CONS] Routine OT Evaluation and Treatment [CONS] Routine PT Evaluation and Treatment [CONS] Routine - Patient Instructions Diet: Usual Diet as Tolerated Activity: Apply Ice, As Tolerated, Elevate Extremity, Full Weight Bearing Activity, Other: Follow the total hip precautions. Driving: Do Not Drive Showering/Bathing: May Shower Wound/Incision Care: Keep Operative Site/Wound Site Clean and Dry, Do NOT Change Dressing Notify Provider of: Fever, Increased Pain, Swelling and Redness, Drainage, Nausea and/or Vomiting Other/Special Instructions: Please get up and moving around EVERY HOUR while awake. This helps to prevent blood clots. Have help with mobility as needed. Please take 325mg aspirin twice daily - this also helps to prevent blood clots. The medication is being used for blood clot prevention and not for pain control, so please use the medication twice daily as directed. Please wear the DARIA hose during the day and you may remove them at night. Please schedule for P.T. Complete the P.T. exercises and stretches that were instructed in the Hospital. Please use the pain medication as needed. The medication may cause drowsiness and/or constipation. You could use a stool softener like docusate sodium or Colace 100mg twice daily and/or a laxative like Miralax daily for constipation. Contact your primary care provider for further instructions if you are constipated. Try to wean from use of the pain medication as soon as able. Please do not use other medications that may cause drowsiness (other pain medications, anxiety pills, sleeping pills, allergy medications that cause drowsiness) while using the pain medication. Please do not use alcohol while using the pain medication. Use the incentive spirometer often. Please place ice to the hip often. Please elevate the limb to decrease swelling. Keep the Mepilex dressing in place until follow-up. Please notify the Clinic if the dressing is saturated or rolls. Increase protein intake in your diet as this helps with healing. If you are a diabetic, please closely monitor your blood sugars and notify your primary care provider of your values. Elevated blood sugars increases the risk of infection. Please call [phone] with questions or concerns. - Discharge Plan *PRESCRIPTION DRUG MONITORING PROGRAM REVIEWED*: No *COPY OF PRESCRIPTION DRUG MONITORING REPORT IN PATIENT VIBHA: No Prescriptions/Med Rec: Acetaminophen/oxyCODONE [Percocet 325-5 MG] 1 - 2 tab PO Q6H PRN #60 tablet PRN Reason: Pain Aspirin [Ecotrin] 325 mg PO BID #84 tab.ec Home Medications: Home Meds Cholecalciferol (Vitamin D3) [Vitamin D3] 5,000 unit PO DAILY 11/13/17 [History] Psyllium [Metamucil] 1 cap PO ASDIRECTED PRN 11/13/17 [History] Acetaminophen/oxyCODONE [Percocet 325-5 MG] 1 - 2 tab PO Q6H PRN #60 tablet 12/24 [Rx] Aspirin [Ecotrin] 325 mg PO BID #84 tab.ec 11/16/17 [Rx] Bisacodyl [Dulcolax] 5 mg PO DAILY PRN tablet 11/16/17 [Rx] Docusate Sodium [Colace] 100 mg PO BID cap 11/16/17 [Rx] Famotidine [Pepcid] 20 mg PO Q12H tablet 11/16/17 [Rx] Magnesium Hydroxide [Milk of Magnesia] 30 ml PO BID PRN cup 11/16/17 [Rx] Sennosides [Senna] 8.6 mg PO BID PRN tablet 11/16/17 [Rx] Referrals: Keturah Alberto PA-C [Physician Equity Manager] - - Patient Data Vitals - Most Recent: Last Vital Signs Temp 97.9 F 11/17/17 03:17 Pulse 47 L 11/17/17 03:17 Resp 14 11/17/17 07:00 BP 115/72 11/17/17 03:17 Pulse Ox 96 11/17/17 07:00 Weight - Most Recent: 233 lb 8 oz I&O - Last 24 hours: Intake & Output 11/16/17 11/17/17 11/17/17 22:59 06:59 14:59 Intake Total 400 2670 Output Total 1150 1325 Balance -750 1345 Lab Results - Last 24 hrs: Laboratory Results - last 24 hr 11/16/17 11/16/17 11/17/17 Range/Units 07:25 10:42 05:40 WBC 7.66 (4.23-9.07) K/mm3 RBC 3.52 L (4.63-6.08) M/mm3 Hgb 12.5 L 10.6 L (13.7-17.5) gm/L Hct 36.7 L 30.9 L (40.1-51.0) % MCV 87.8 (79.0-92.2) fl MCH 30.1 (25.7-32.2) pg MCHC 34.3 (32.2-35.5) g/dl RDW Std Deviation 41.2 (35.1-43.9) fL Plt Count 156 L (163-337) K/mm3 MPV 9.3 L (9.4-12.3) fl Sodium (136-145) mEq/L Potassium (3.5-5.1) mEq/L Chloride (98-107) mEq/L Carbon Dioxide (21-32) mEq/L Anion Gap (5-15) BUN (7-18) mg/dL Creatinine (0.7-1.3) mg/dL Est Cr Clr Drug Dosing mL/min Estimated GFR (MDRD) (>60) mL/min BUN/Creatinine Ratio (14-18) Glucose (74-106) mg/dL Calcium (8.5-10.1) mg/dL Total Bilirubin (0.2-1.0) mg/dL AST (15-37) U/L ALT (16-63) U/L Alkaline Phosphatase (46-116) U/L Total Protein (6.4-8.2) g/dl Albumin (3.4-5.0) g/dl Globulin gm/dL Albumin/Globulin Ratio (1-2) Blood Type O POSITIVE Gel Antibody Screen Negative 11/17/17 Range/Units 05:40 WBC (4.23-9.07) K/mm3 RBC (4.63-6.08) M/mm3 Hgb (13.7-17.5) gm/L Hct (40.1-51.0) % MCV (79.0-92.2) fl MCH (25.7-32.2) pg MCHC (32.2-35.5) g/dl RDW Std Deviation (35.1-43.9) fL Plt Count (163-337) K/mm3 MPV (9.4-12.3) fl Sodium 140 (136-145) mEq/L Potassium 3.6 (3.5-5.1) mEq/L Chloride 104 (98-107) mEq/L Carbon Dioxide 30 (21-32) mEq/L Anion Gap 9.6 (5-15) BUN 13 (7-18) mg/dL Creatinine 1.1 (0.7-1.3) mg/dL Est Cr Clr Drug Dosing 85.57 mL/min Estimated GFR (MDRD) > 60 (>60) mL/min BUN/Creatinine Ratio 11.8 L (14-18) Glucose 113 H (74-106) mg/dL Calcium 8.2 L (8.5-10.1) mg/dL Total Bilirubin 0.4 (0.2-1.0) mg/dL AST 43 H (15-37) U/L ALT 32 (16-63) U/L Alkaline Phosphatase 46 (46-116) U/L Total Protein 5.5 L (6.4-8.2) g/dl Albumin 3.0 L (3.4-5.0) g/dl Globulin 2.5 gm/dL Albumin/Globulin Ratio 1.2 (1-2) Blood Type Gel Antibody Screen Med Orders - Current: Current Medications Aspirin (Ecotrin) 325 mg PO BID K[facility]IS[facility] Bisacodyl (Dulcolax) 5 mg PO DAILY PRN PRN Reason: Constipation Cholecalciferol (Vitamin D3) 5,000 unit PO DAILY KARISSA Cyclobenzaprine HCl (Flexeril) 10 mg PO TID PRN PRN Reason: Spasms Last Admin: 11/16/17 20:29 Dose: 10 mg Docusate Sodium (Colace) 100 mg PO BID [facility] Last Admin: 11/16/17 20:29 Dose: 100 mg Famotidine (Pepcid) 20 mg PO Q12H [facility] Last Admin: 11/16/17 20:29 Dose: 20 mg Cefazolin Sodium/Dextrose 2 gm (/ Premix) 50 mls @ 100 mls/hr IV Q8H [facility] Stop: 11/17/17 07:59 Last Admin: 11/17/17 06:40 Dose: 100 mls/hr Ketorolac Tromethamine (Toradol) 15 mg IVPUSH Q6H PRN PRN Reason: Pain Last Admin: 11/17/17 06:39 Dose: 15 mg Magnesium Hydroxide (Milk Of Magnesia) 30 ml PO BID PRN PRN Reason: Constipation Miscellaneous Information (Remove Patch) 1 ea TRDERM ONETIME ONE Stop: 11/19/17 14:16 Morphine Sulfate (Morphine) 2 mg IVPUSH Q2H PRN PRN Reason: Breakthrough Pain Naloxone HCl (Narcan) 0.1 mg IVPUSH Q5M PRN PRN Reason: Oversedation Ondansetron HCl (Zofran) 4 mg IVPUSH Q6H PRN PRN Reason: Nausea/Vomiting Last Admin: 11/16/17 20:30 Dose: 4 mg Oxycodone/Acetaminophen (Percocet 325-5 Mg) 1 - 2 tab PO Q4H PRN PRN Reason: Pain Last Admin: 11/17/17 03:07 Dose: 2 tab Psyllium Husk (Metamucil Sugar Free) 1 packet PO DAILY PRN PRN Reason: CONSTIPATION Senna (Senna) 8.6 mg PO BID PRN PRN Reason: Constipation Sodium Chloride (Saline Flush) 10 ml FLUSH ASDIRECTED PRN PRN Reason: Keep Vein Open Discontinued Medications Acetaminophen (Tylenol) 975 mg PO ONETIME [facility] Stop: 11/16/17 12:00 Last Admin: 11/16/17 07:33 Dose: 975 mg Bupivacaine HCl (Marcaine 0.25%) Confirm Administered Dose 30 ml .ROUTE .STK- MED ONE Stop: 11/16/17 07:14 Last Admin: 11/16/17 09:29 Dose: 30 ml Bupivacaine HCl (Sensorcaine-Mpf 0.75%) Confirm Administered Dose 30 ml .ROUTE .STK-MED ONE Stop: 11/16/17 08:40 Cefazolin Sodium (Ancef) Confirm Administered Dose 2 gm .ROUTE .STK-MED ONE Stop: 11/16/17 06:59 Last Admin: 11/16/17 09:23 Dose: 2 gm Cefazolin Sodium (Ancef) Confirm Administered Dose 2 gm .ROUTE .STK-MED ONE Stop: 11/16/17 07:14 Morphine Sulfate 8 mg/Epinephrine HCl 0.3 mg/Cefuroxime Sodium 750 mg/Ketorolac Tromethamine 30 mg/Sodium Chloride 27.9 ml 0 mg .XX ONETIME ONE Stop: 11/16/17 09:01 Last Admin: 11/16/17 15:05 Dose: Not Given Diphenhydramine HCl (Benadryl) 25 mg IVPUSH Q6H PRN PRN Reason: itching Stop: 11/16/17 14:00 Fentanyl (Sublimaze) Confirm Administered Dose 100 mcg .ROUTE .STK-MED ONE Stop: 11/16/17 07:00 Fentanyl (Sublimaze) 50 mcg IVPUSH Q5M PRN PRN Reason: pain Stop: 11/16/17 14:00 Hydromorphone HCl (Dilaudid) 0.5 mg IVPUSH ONETIME PRN PRN Reason: Pain (severe 7-10) Stop: 11/16/17 12:00 Lactated Ringer's (Ringers, Lactated) 1,000 mls @ 125 mls/hr IV ASDIRECTED [facility] Last Admin: 11/16/17 07:25 Dose: 125 mls/hr Lidocaine HCl (Xylocaine-Mpf 1%) Confirm Administered Dose 5 mls @ as directed .ROUTE .STK-MED ONE Stop: 11/16/17 08:40 Lactated Ringer's (Ringers, Lactated) Confirm Administered Dose 1,000 mls @ as directed .ROUTE .STK-MED ONE Stop: 11/16/17 09:48 Lactated Ringer's (Ringers, Lactated) Confirm Administered Dose 1,000 mls @ as directed .ROUTE .STK-MED ONE Stop: 09/10/18 09:48 Lactated Ringer's (Ringers, Lactated) Confirm Administered Dose 1,000 mls @ as directed .ROUTE .STK-MED ONE Stop: 11/16/17 09:48 Iodine (Iodine 2% Mild Tincture) Confirm Administered Dose 30 ml .ROUTE .STK- MED ONE Stop: 11/16/17 07:14 Last Admin: 11/16/17 09:21 Dose: 18 ml Lidocaine/Sodium Bicarbonate (Buffered Lidocaine 1% In Ns 8.4%) 0.25 ml IDERM ONETIME PRN PRN Reason: Prior to IV Start Last Admin: 11/16/17 07:25 Dose: 0.25 ml Midazolam HCl (Versed 1 Mg/Ml) Confirm Administered Dose 2 mg .ROUTE .STK-MED ONE Stop: 11/16/17 07:00 Morphine Sulfate (Duramorph Pf) Confirm Administered Dose 10 mg .ROUTE .STK-MED ONE Stop: 11/16/17 07:00 Ondansetron HCl (Zofran) Confirm Administered Dose 4 mg .ROUTE .STK-MED ONE Stop: 11/16/17 08:40 Oxycodone HCl (Oxycontin) 10 mg PO ONETIME [facility] Stop: 11/16/17 12:00 Last Admin: 11/16/17 07:33 Dose: 10 mg Pregabalin (Lyrica) 50 mg PO ONETIME [facility] Stop: 11/16/17 12:00 Last Admin: 11/16/17 07:33 Dose: 50 mg Propofol (Diprivan 20 Ml) Confirm Administered Dose 600 mg .ROUTE .STK-MED ONE Stop: 11/16/17 07:00 Propofol (Diprivan 20 Ml) Confirm Administered Dose 200 mg .ROUTE .STK-MED ONE Stop: 11/16/17 09:00 Scopolamine (Transderm-Scop) 1.5 mg TRDERM Q72H ONE Stop: 11/16/17 14:14 Last Admin: 11/16/17 14:18 Dose: 1.5 mg Tranexamic Acid (Cyklokapron) Confirm Administered Dose 1,000 mg .ROUTE .STK- MED ONE Stop: 11/16/17 07:14 Last Admin: 11/16/17 09:30 Dose: 1,000 mg Vancomycin HCl (Vancomycin) Confirm Administered Dose 1 gm .ROUTE .STK-MED ONE Stop: 11/16/17 07:14 Last Admin: 11/16/17 09:30 Dose: 1 gm
[2017-11-17] MEDS: Famotidine 20 MG Tab PO SCH (08:32)
[2017-11-17] MEDS: Docusate Sodium 100 MG Cap PO SCH (08:32)
--- NOTE | 2017-11-17 08:33 | PCM48HPAN ---
Post Anesthesia Note - EVALUATION WITHIN 48HRS OF ANESTHETIC Vital Signs in Normal Range: Yes Patient Participated in Evaluation: Yes Respiratory Function Stable: Yes Airway Patent: Yes Cardiovascular Function Stable: Yes Hydration Status Stable: Yes Pain Control Satisfactory: Yes Nausea and Vomiting Control Satisfactory: Yes Mental Status Recovered: Yes - COMMENTS/OBSERVATIONS Free Text/Narrative:: Patient doing well now resting in bed. But stated earlier yesterday the he was nauseated until about 2200 last evening. Rested well last night. Denied any other anesthetic complications other than the nausea.
--- NOTE | 2017-11-17 08:35 | PCM48HPAN ---
Post Anesthesia Note - EVALUATION WITHIN 48HRS OF ANESTHETIC Vital Signs in Normal Range: Yes Patient Participated in Evaluation: Yes Respiratory Function Stable: Yes Airway Patent: Yes Cardiovascular Function Stable: Yes Hydration Status Stable: Yes Pain Control Satisfactory: Yes Nausea and Vomiting Control Satisfactory: Yes Mental Status Recovered: Yes - COMMENTS/OBSERVATIONS Free Text/Narrative:: Patient stated she felt her block wear off at about 0245 this am. Patient did complain of pruritus yesterday but she is OK now. Patient rested well last night and did not complain of any other anesthetic complications.
[2017-11-17] MEDS ORDERED: Cholecalciferol (Vitamin D3) 5,000 UNIT Tab PO SCH (09:00)
[2017-11-17] MEDS ORDERED: Aspirin 325 MG Tab.EC PO SCH (09:00)
--- NOTE | 2017-11-25 12:44 | PCM.OPNOTE ---
- General Post-Op/Procedure Note Date of Surgery/Procedure: 11/16/17 Operative Procedure(s): right total hip arthroplasty Pre Op Diagnosis: right hip osteoarthrosis Post-Op Diagnosis: Same Anesthesia Technique: Local, MAC, Spinal Primary Surgeon: Nicholas Buitrago Anesthesia Provider: Kirstie Lim Drafter: Keturah Alberto Drafter: Rufina Dowling EBFranci in mLs: 800 Complications: None Condition: Good
--- NOTE | 2017-11-25 14:45 | OR ---
DATE OF OPERATION: 11/16/2017 SURGEON: Nicholas Buitrago MD OPERATION PERFORMED: Right total hip arthroplasty. PREOPERATIVE DIAGNOSIS: Right hip osteoarthrosis. POSTOPERATIVE DIAGNOSIS: Right hip osteoarthrosis. ANESTHESIA: Local MAC with spinal. ANESTHESIA PROVIDER: Kirstie Lim. ASSISTANTS: Keturah Alberto PA-C, and Rufina Dowling LPN. ESTIMATED BLOOD LOSS: 800 mL. COMPLICATIONS: None. CONDITION: Stable. IMPLANTS: 1. Duncan size 36+ 7.5 mm Biolox ceramic head. 2. Yosvany size 54 mm solid Tritanium acetabular cup. 3. Duncan size 5 Accolade II stem. DESCRIPTION OF PROCEDURE: The patient was identified in the preoperative holding area. Proper site was marked and identified by the surgeon. The patient was taken back to the operating theater where after adequate anesthesia, the patient was placed in a left lateral decubitus position. Axillary roll was placed. All bony prominences were well padded. Pegs were then placed and well padded. The patient's gluteal fold was parallel to the floor. At this time, the right hip was then sterilely prepped and draped in the usual sterile fashion. OR time-out was performed. The patient received 2 g IV Ancef. At this time, incision was made centered over the greater trochanter. This was taken down to the IT band and gluteal fascia, which was incised along the incisional length. Charnley retractor was then placed. Neurovascular bundles were protected. Short external rotators were identified and takedown of the short external rotators as well as capsulotomy was performed from the level of the piriformis down to the lesser trochanter. At this time, the hip was then dislocated and neck cut was then completed. Anterior and posterior acetabular retractors were then placed. Remaining labrum was removed along with pulvinar. At this time, a 44 reamer was utilized to medialize and then reamed up to a 54 mm reamer which was found to have adequate chatter, so at this time, a 54 mm solid Tritanium acetabular cup was impacted into place in roughly 45 degrees of abduction and 10 to 20 degrees of anteversion. The 36 degree 10 degree elevated liner was then impacted into place. Attention was turned to the femur. Femoral elevator was then placed. Box chisel was used out laterally and starter awl was placed down the canal. Starting with the 0 broach, I was able to broach up to a size 5 which was found to be rotationally and vertically stable. A 0 trial was trialed first and it was found to be short on leg lengths, so at this time, a +7.5 was trialed and was found to have adequate hindu of leg lengths and was stable throughout range of motion. At this time, the size 5 Accolate stem was impacted into place with a 36+ 7.5 mm femoral head. Hip was then reduced. A #5 Ethibond suture was used for closure of the short external rotators as well as capsule. A 1 L dilute Betadine solution was irrigated through the hip along with 3 L of pulse lavage irrigation with Ancef. Periarticular injection was then completed. A #2 barbed suture was used for closure of the IT band and gluteal fascia. Stratafix was used subcutaneously and Prineo was used for the skin. The patient was sent to PACU in stable condition. RADHA /[id number]
== END 2017-11-17 10:10 | disposition home or self-care (01) | DRG 301 ==
LOC: JD.MS 07:04
PROVIDERS: ADMIT Orthopaedic Surgery; ATTEND Orthopaedic Surgery
PROC: 0SR90JZ Replacement of Right Hip Joint with Synthetic Substitute, Open Approach (ICD-10-PCS; principal; 2017-11-16)
DX: M16.11 Unilateral primary osteoarthritis, right hip (principal); G62.9 Polyneuropathy, unspecified; I10 Essential (primary) hypertension; G47.33 Obstructive sleep apnea (adult) (pediatric); H54.7 Unspecified visual loss; M25.859 Other specified joint disorders, unspecified hip; L29.9 Pruritus, unspecified; R11.0 Nausea; Z79.899 Other long term (current) drug therapy; Z79.82 Long term (current) use of aspirin
CPT/HCPCS: 01214; 36415; 73501-26-RT; 73501-RT; 80053; 85014; 85018; 85027; 86850; 86900; 86901; 87641; 94762; 97110-GP; 97116-GP; 97161-GP; 97165-GO; 97535-GO; A9270-GY; C1776; J0171; J0690; J0697; J1885; J2250; J2270; J2405; J2704; J3010; J3370; J3490; J7120